=== PATIENT | male | born 1970 | race African-American/Black ===

== ENCOUNTER 2017-11-13 14:16 | Emergency (ER) | payer OTHER ==
[2017-11-13 14:24] VITALS: BP 161/95
[2017-11-13] MEDS ORDERED: ACETAMINOPHEN 325 MG TABLET PO ONE (15:01)
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
== END 2017-11-13 15:45 | disposition home or self-care (01) ==
LOC: ER 14:16
DX: S49.91XA Unspecified injury of right shoulder and upper arm, initial encounter (principal); M25.511 Pain in right shoulder; V49.50XA Passenger injured in collision with unspecified motor vehicles in traffic accident, initial encounter; I10 Essential (primary) hypertension
CPT/HCPCS: 99283